=== PATIENT | male | born 1990 | race Caucasian/White ===

== ENCOUNTER 2017-10-02 20:45 | Emergency (ER) | payer SELFPAY ==
[~2017-10-02] VITALS: Ht 193 cm; Wt 83.1 kg
[2017-10-02 20:46] VITALS: BP 147/89
[2017-10-02] MEDS ORDERED: LIDOCAINE 1%, 10ML INFIL ONE (22:00)
[2017-10-02] MEDS ORDERED: ONDANSETRON ODT 4 MG PO ONE (22:00)
[2017-10-02] MEDS ORDERED: HYDROcodone/APAP 5/325 TABLET PO ONE (22:00)
[2017-10-02] MEDS ORDERED: CEFAZOLIN 1,000 MG IM ONE (22:00)
[2017-10-02] MEDS ORDERED: LIDOCAINE-MPF 1%, 5ML ONE (22:12)
[2017-10-02] MEDS ORDERED: ONDANSETRON ODT 4 MG ONE (22:12)
[2017-10-02] MEDS ORDERED: CEFAZOLIN 1,000 MG ONE (22:12)
[2017-10-02] MEDS ORDERED: HYDROcodone/APAP 5/325 TABLET ONE (22:12)
== END 2017-10-02 23:00 | disposition home or self-care (01) ==
LOC: ED 22:50
DX: L02.11 Cutaneous abscess of neck (principal)
CPT/HCPCS: 10060; 96372; 99283; J0690; Q0162

== ENCOUNTER 2017-10-04 22:09 | Emergency (ER) | payer SELFPAY ==
[~2017-10-04] VITALS: Ht 193 cm; Wt 83.1 kg
[2017-10-04 22:11] VITALS: BP 142/88
[2017-10-04] MEDS ORDERED: SULFAMETH./TRIMETHOPRIM DS 800MG/160MG TABLET ONE (22:39)
[2017-10-04] MEDS ORDERED: CEPHALEXIN 500 MG CAPSULE ONE (22:39)
[2017-10-04] MEDS ORDERED: SULFAMETH./TRIMETHOPRIM DS 800MG/160MG TABLET PO ONE (23:00)
[2017-10-04] MEDS ORDERED: CEPHALEXIN 500 MG CAPSULE PO ONE (23:00)
== END 2017-10-04 22:55 | disposition home or self-care (01) ==
LOC: ED 22:50
DX: F17.210 Nicotine dependence, cigarettes, uncomplicated (principal); Z48.00 Encounter for change or removal of nonsurgical wound dressing
CPT/HCPCS: 99283